=== PATIENT | female | born 2000 | race Caucasian/White ===

== ENCOUNTER 2022-11-10 11:33 | Emergency (ER) | payer MEDICAID ==
[~2022-11-10] VITALS: Ht 147.3 cm; Wt 51.3 kg
[2022-11-10 11:42] VITALS: BP 107/71
--- NOTE | 2022-11-10 11:42 | NUR ---
bibs w/ c/o cough, sore throat x2 weeks, shortness of breath sinice this morning. to er bed 7, attached to monitor.
--- NOTE | 2022-11-10 12:08 | NUR ---
DR ARGUELLES AT BEDSIDE FOR EVAL
--- NOTE | 2022-11-10 12:10 | NUR ---
TECH AT BEDSIDE FOR EKG
--- NOTE | 2022-11-10 12:13 | NUR ---
RAPID COVID AND RAPID FLU SWABS OBTAINED AND SENT TO LAB
--- NOTE | 2022-11-10 12:18 | NUR ---
URINE SAMPLE COLLECTED AND SENT TO LAB
[2022-11-10] MEDS ORDERED: ONDANSETRON 4 MG TAB.RAPDIS ONE (12:27)
[2022-11-10] MEDS ORDERED: ONDANSETRON 4 MG TAB.RAPDIS PO ONE (12:30)
[2022-11-10] MEDS ORDERED: ONDA4TAB11 PO (13:22)
[2022-11-10] MEDS ORDERED: BENZ-13 PO (13:39)
--- NOTE | 2022-11-10 14:00 | NUR ---
Patient discharged to home in stable condition. Written and verbal after care instructions given. Patient verbalizes understanding of instruction.
[2022-11-10] MEDS ORDERED: CEFU500T66 PO (20:05)
[2022-11-10] MEDS ORDERED: DOXY100C2 PO (20:05)
== END 2022-11-10 14:03 | disposition home or self-care (01) ==
LOC: ER 11:33
DX: J18.9 Pneumonia, unspecified organism (principal); Z20.822 Contact with and (suspected) exposure to COVID-19; R11.2 Nausea with vomiting, unspecified
CPT/HCPCS: 99285; 71045; 87426; 93005; 87804; 84703; Q0162; C9803